=== PATIENT | female | born 1970 | race Caucasian/White ===

== ENCOUNTER 2021-06-19 09:51 | Emergency (ER) | payer SELFPAY ==
[~2021-06-19] VITALS: Ht 170.2 cm; Wt 113.4 kg
[2021-06-19] MEDS ORDERED: NAPROXEN500 MG PO (13:15)
== END 2021-06-19 14:01 | disposition home or self-care (01) ==
LOC: FER 09:51
DX: S80.02XA Contusion of left knee, initial encounter (principal); E11.9 Type 2 diabetes mellitus without complications; W01.0XXA Fall on same level from slipping, tripping and stumbling without subsequent striking against object, initial encounter; Y92.511 Restaurant or cafe as the place of occurrence of the external cause
CPT/HCPCS: 73560